=== PATIENT | female | born 1985 | race Caucasian/White ===

== ENCOUNTER 2017-10-06 13:30 | Emergency (ER) | payer OTHER ==
[2017-10-06 13:37] VITALS: BP 180/118
--- NOTE | 2017-10-06 14:19 | Emergency Department Report ---
ED Seizure HPI - General Chief Complaint: Seizure Stated Complaint: SEIZURE Time Seen by Provider: 10/06/17 14:19 Source: patient Mode of arrival: Wheelchair Limitations: No Limitations - History of Present Illness Initial Comments: Patient is a 32-year-old female who is presenting status post seizure. The patient's boyfriend states that since November 2016 she is been having seizure-like activity and has been diagnosed with seizures as well as pseudoseizures. Patient states that 4 months ago she was admitted to the [facility] for seizures had a EEG done but patient's boyfriend does not know the results of that test. Patient was started on Keppra at one point but took herself off secondary to side effects. Patient's been taking Percocet as well as random benzos that she's gotten over this last several months to control seizure activity. Patient's /boyfriend states that the symptoms are worse after emotional stress. Patient had a seizure-like activity here in the parking lot and was brought in for evaluation. Patient's family states that there has been no recent fever chills nausea vomiting diarrhea chest pain cough at this time. MD Complaint: possible seizure - Related Data Allergies Allergy/AdvReac Type Severity Reaction Status Date / Time Penicillins AdvReac Hives Verified 10/06/17 13:38 ED Review of Systems ROS: Stated complaint: SEIZURE Other details as noted in HPI Comment: Unobtainable due to pts medical conditions ED Past Medical Hx - Past Medical History Previous Medical History?: Yes Hx Hypertension: Yes Hx Seizures: Yes - Surgical History Past Surgical History?: Yes Additional Surgical History: - Social History Smoking Status: Current Every Day Smoker Substance Use Type: Alcohol ED Physical Exam - General Limitations: No Limitations, Altered Mental Status General appearance: alert, in no apparent distress, other (patient is staring off to the side however she will follow commands she will blink when asked a blank she will squeeze her hand when asked to squeeze her hand but is nonverbal at this time and 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 Absent: respiratory distress, wheezes, rales, rhonchi - Cardiovascular Cardiovascular Exam: Present: regular rate, normal rhythm. Absent: systolic murmur, diastolic murmur, rubs, gallop - GI/Abdominal GI/Abdominal exam: Present: soft, normal bowel sounds - Extremities Exam Extremities exam: Present: normal inspection - Neurological Exam Neurological exam: Present: alert, other (patient not cooperative with the exam) ED Course Vital Signs 10/06/17 10/06/17 13:32 14:47 Temperature 98.3 F Pulse Rate 113 H Respiratory 20 14 Rate Blood Pressure 180/118 O2 Sat by Pulse 100 Oximetry ED Medical Decision Making - Lab Data Result diagrams: 10/06/17 14:55 10/06/17 14:55 - Medical Decision Making Patient is a 32-year-old female who is presenting with possible seizures versus pseudoseizures. because she is never been here in our emergency department I thought it necessary to at least rule out serious causes of seizure such as or joint abnormality or issues with her brain. Patient's boyfriend/ did not know if she did have a CAT scan of the head recently. Patient during her workup did stand up and walk out of the emergency department on her own her boyfriend/ followed behind Critical care attestation.: If time is entered above; I have spent that time in minutes in the direct care of this critically ill patient, excluding procedure time. ED Disposition Clinical Impression: Convulsion Disposition: DC-07 LEFT AGAINST MED ADVICE Is pt being admited?: No Does the pt Need Aspirin: No Condition: Stable Referrals: CHARLY AUGUSTINE MD [Primary Care Provider] - 3-5 Days
[2017-10-06 15:24] LABS: Basophils # (Auto) 0.1 K/mm3 (0.0-0.1); Basophils % (Auto) 1.4 % (0.0-1.8); Eosinophils # (Auto) 0.1 K/mm3 (0.0-0.4); Eosinophils % (Auto) 1.5 % (0.0-4.3); Hematocrit 46.1 % (30.3-42.9); Lymphocytes # (Auto) 2.2 K/mm3 (1.2-5.4); Mean Corpuscular HGB Conc 35 % (30-34); Mean Corpuscular Hemoglobin 35 pg (28-32); Mean Corpuscular Volume 100 fl (79-97); Monocytes # (Auto) 0.5 K/mm3 (0.0-0.8); Platelet Count 224 K/mm3 (140-440); Red Blood Count 4.61 M/mm3 (3.65-5.03); Red Cell Distribution Width 12.8 % (13.2-15.2)
[2017-10-06 16:08] LABS: Amphetamine Screen,Urine PRESUMPTIVE NEGATIVE; Cocaine Screen,Urine PRESUMPTIVE NEGATIVE; Methadone Screen,Urine PRESUMPTIVE NEGATIVE; Opiate Screen,Urine PRESUMPTIVE NEGATIVE
[2017-10-06 16:11] LABS: Bilirubin,Urine NEG (Negative); Blood,Urine NEG (Negative); Color,Urine Yellow (Yellow); Mucus,Urine FEW /HPF; Nitrite,Urine NEG (Negative); Protein,Urine <15 mg/dL mg/dL (Negative); Urobilinogen,Urine < 2.0 mg/dL (<2.0)
[2017-10-06 16:30] LABS: Benzodiazepines Screen,Urine PRESUMPTIVE POSITIVE; Cannabinoid Screen,Urine PRESUMPTIVE POSITIVE
[2017-10-06 16:31] LABS: Alanine Aminotransferase 62 units/L (7-56); Albumin 5.2 g/dL (3.9-5); BUN/Creatinine Ratio 11; Blood Urea Nitrogen 8 mg/dL (7-17); Calcium 9.6 mg/dL (8.4-10.2); Hemolysis Index 6
== END 2017-10-06 16:28 | disposition left against medical advice (07) ==
LOC: ED 13:30
DX: R56.9 Unspecified convulsions (principal); I10 Essential (primary) hypertension; F17.200 Nicotine dependence, unspecified, uncomplicated; Z88.0 Allergy status to penicillin
CPT/HCPCS: 36415; 80053; 80307; 81001; 84703; 85025; 99283; G0480; 80320